=== PATIENT | female | born 1995 | race Caucasian/White ===

== ENCOUNTER 2020-11-25 09:29 | Emergency (ER) | payer OTHER ==
[2020-11-25] MEDS ORDERED: NAPROXEN500 MG PO (10:24)
== END 2020-11-25 10:31 | disposition home or self-care (01) ==
LOC: FER 09:29
DX: R07.89 Other chest pain (principal); F17.210 Nicotine dependence, cigarettes, uncomplicated; Z88.0 Allergy status to penicillin
CPT/HCPCS: 71046

== ENCOUNTER 2021-06-19 15:03 | Emergency (ER) | payer OTHER ==
[~2021-06-19 15:03] MED LIST: NAPROXEN500 MG PO
[2021-06-19] MEDS ORDERED: BLEPH-10 O20 DROPS/M EYELF (16:21)
== END 2021-06-19 16:35 | disposition home or self-care (01) ==
LOC: FER 15:03
DX: S05.02XA Injury of conjunctiva and corneal abrasion without foreign body, left eye, initial encounter (principal); Z88.0 Allergy status to penicillin; W22.8XXA Striking against or struck by other objects, initial encounter; Y92.89 Other specified places as the place of occurrence of the external cause; Y99.0 Civilian activity done for income or pay
CPT/HCPCS: 99283